=== PATIENT | male | born 1990 | race African-American/Black ===

== ENCOUNTER 2022-10-13 18:18 | Emergency (ER) | payer MEDICAID ==
[~2022-10-13] VITALS: Ht 185.4 cm; Wt 102.0 kg
[2022-10-13 18:30] VITALS: BP 149/77
[2022-10-13] MEDS ORDERED: IBUPROFEN 600MG TABLET PO ONE (18:45)
[2022-10-13] MEDS ORDERED: IBUPROFEN 600MG TABLET PO NR (20:30)
== END 2022-10-13 20:42 | disposition home or self-care (01) ==
LOC: ER 18:18
DX: S86.092A Other specified injury of left Achilles tendon, initial encounter (principal); X50.1XXA Overexertion from prolonged static or awkward postures, initial encounter; R03.0 Elevated blood-pressure reading, without diagnosis of hypertension; Y93.67 Activity, basketball; Y92.310 Basketball court as the place of occurrence of the external cause
CPT/HCPCS: 29515; 73600; 99283